=== PATIENT | male | born 1980 | race Caucasian/White ===

== ENCOUNTER → 2016-09-24 | Outpatient (CLI) | payer OTHER ==
[~2016-09-24] MED LIST: DICY20TA35 PO; HYOS1TAB PO; MULT-506 PO; OMEG10007 PO; OPTIRAY 320 IV PRN; PRCUNK PO
--- NOTE | 2016-09-24 16:20 | DIAGNOSTIC IMAGING REPORT ---
ABDOMEN AND PELVIS CT WITH IV AND ORAL CONTRAST CT DOSE: 419.56 mGy.cm HISTORY: Left lower quadrant abdominal pain. TECHNIQUE: Multiaxial CT images of the abdomen and pelvis were performed following the use of intravenous and oral contrast. COMPARISON STUDY: None. FINDINGS: The lung bases are clear. The liver, spleen, gallbladder, pancreas, kidneys, and adrenal glands are within normal limits. Bladder is not well-distended but appears unremarkable. No retroperitoneal lymphadenopathy. The appendix is surgically absent. Questionable mild thickening of the sigmoid colon and rectum is likely due to underdistention. No pericolonic fat stranding to suggest an acute process. No suspicious lytic or blastic osseous lesions. IMPRESSION: 1. Questionable mild thickening of the sigmoid colon and rectum is likely due to underdistention. An early colitis is considered less likely. 2. No evidence for bowel obstruction. 3. The appendix is surgically absent. Electronically signed by: Akin Tam M.D. 09/24/2016 4:18 PM Dictated Date/Time: 09/24/2016 4:08 PM
== END | disposition home or self-care (01) ==
LOC: C.CTS 13:37
PROVIDERS: ATTEND Family Medicine
DX: R10.32 Left lower quadrant pain (principal)

== ENCOUNTER → 2017-07-11 | Outpatient (CLI) | payer OTHER ==
[~2017-07-11] MED LIST changes: -HYOS1TAB PO; -OPTIRAY 320 IV PRN; -PRCUNK PO
--- NOTE | 2017-07-11 13:04 | DIAGNOSTIC IMAGING REPORT ---
(TESTICULAR) SCROTUM-CONT HISTORY: Testicular mass TESTICULAR LESION COMPARISON: None. FINDINGS: Right testis: Maximum dimension 4.3 cm. Normal vascular flow. Moderate hydrocele. Left testis: Maximum dimension 4.1 cm. Normal vascular flow. Moderate hydrocele. 4 mm epididymal cyst. Small varicocele. IMPRESSION: 1. Normal testes. 2. Normal vascular flow to both testis. 3. Small/moderate bilateral hydroceles. 4. 4 mm left epididymal cyst] The above report was generated using voice recognition software. It may contain grammatical, syntax or spelling errors. Electronically signed by: Arben Santoyo M.D. 07/11/2017 1:03 PM Dictated Date/Time: 07/11/2017 1:00 PM
== END | disposition home or self-care (01) ==
LOC: C.ULTRBC 12:17
PROVIDERS: ATTEND Urology
DX: N43.3 Hydrocele, unspecified (principal); N50.3 Cyst of epididymis

== ENCOUNTER → 2017-08-01 | Outpatient (CLI) | payer OTHER | END | disposition home or self-care (01) | LOC: C.PATHSPEC 16:55 | PROVIDERS: ATTEND Urology | DX: Z30.2 Encounter for sterilization (principal) ==